=== PATIENT | female | born 1965 | race Two or more races ===

== ENCOUNTER 2022-07-30 06:46 | Day surgery (SDC) | payer OTHER ==
[~2022-07-30 06:46] MED LIST: ALPRAZOLAM ODT2 MG PO; CHILDREN'S ASPI81 MG PO; CYMBALTA30 MG PO; NORVASC5 MG PO; PROAIR RESPICL90 MCG IH; TREXALL5 MG PO
== END 2022-07-30 16:25 | disposition home or self-care (01) ==
LOC: CIR.AMB 06:46
PROVIDERS: ATTEND Orthopaedic Surgery Hand Surgery
DX: G56.21 Lesion of ulnar nerve, right upper limb (principal); M77.01 Medial epicondylitis, right elbow; Z88.2 Allergy status to sulfonamides; I10 Essential (primary) hypertension; Z85.42 Personal history of malignant neoplasm of other parts of uterus; Z92.21 Personal history of antineoplastic chemotherapy

== ENCOUNTER 2023-04-20 10:28 | Emergency (ER) | payer OTHER ==
[~2023-04-20] VITALS: Ht 157.5 cm; Wt 59.0 kg
[2023-04-20] MEDS ORDERED: GABAPENTIN300 M2 PO (10:54)
== END 2023-04-20 14:29 | disposition home or self-care (01) ==
LOC: ER 10:28
DX: J45.909 Unspecified asthma, uncomplicated (principal); Z88.2 Allergy status to sulfonamides; M19.90 Unspecified osteoarthritis, unspecified site; Z20.822 Contact with and (suspected) exposure to COVID-19

== ENCOUNTER 2023-11-25 06:42 | Day surgery (SDC) | payer OTHER ==
[2023-11-13 11:46] LABS: INR 0.99; PARTIAL THROMBOPLASTIN TIME 32.4 SECONDS (22.0-34.0); PROTHROMBIN TIME 10.4 SECONDS (9.0-11.5)
[~2023-11-25 06:42] MED LIST changes: +ACIDO FOLICO; +GABAPENTIN300 M2 PO; +VAZALORE81 MG; +[UNRECOGNIZED DRUG - OTHER]
[2023-11-25] MEDS ORDERED: BUPIVACAINE HCL/PF 0.5% 30ML ML ONE (13:11)
[2023-11-25] MEDS ORDERED: LIDOCAINE HCL/EPINEPHRINE 20 ML VIAL IJ ONE (13:11)
[2023-11-25] MEDS ORDERED: CEFAZOLIN SODIUM 1,000 MG VIAL ONE (13:11)
[2023-11-25] MEDS ORDERED: LIDOCAINE HCL 1% 200MG/20ML VIAL IJ ONE ×2 (13:11→16:30)
[2023-11-25] MEDS ORDERED: CEFAZOLIN SODIUM 1,000 MG VIAL IV ONE (16:15)
[2023-11-25] MEDS ORDERED: LIDOCAINE HCL/EPINEPHRINE 30 ML ML IJ ONE (16:30)
[2023-11-25] MEDS ORDERED: CEFAZOLIN SODIUM 1,000 MG VIAL IV SCH (17:00)
== END 2023-11-25 18:30 | disposition home or self-care (01) ==
LOC: CIR.AMB 06:42
PROVIDERS: ATTEND Specialist
DX: D21.6 Benign neoplasm of connective and other soft tissue of trunk, unspecified (principal); I10 Essential (primary) hypertension; Z20.822 Contact with and (suspected) exposure to COVID-19; Z88.2 Allergy status to sulfonamides; Z88.1 Allergy status to other antibiotic agents

== ENCOUNTER 2024-08-02 07:22 | Inpatient (IN) | payer OTHER ==
[~2024-08-02] VITALS: Ht 157.5 cm; Wt 133.8 kg
[2024-08-02] MEDS ORDERED: KETOROLAC TROMETHAMINE 60 MG VIAL IM ONE (08:45)
[2024-08-02 09:36] LABS: HEMATOCRIT 41.3 % (36.0-45.00); HEMOGLOBIN 14.1 g/dL (12.0-15.00); MEAN CELL VOLUME 92.5 fL (80.00-100.00); MEAN CORPUSCULAR HEMOGLOBIN 31.6 pg (27.00-32.0); MEAN CORPUSCULAR HGB CONC 34.2 g/dl (32.0-36.0); PLATELET COUNT 260 K/uL (150-450); RED BLOOD COUNT 4.47 M/uL (4.00-6.00); RED CELL DISTRIBUTION WIDTH 14.1 % (11.5-14.5)
[2024-08-02 09:43] LABS: PH,URINE 7.5 (5.0-8.0); URINE APPEARANCE Turbid; URINE BILIRRUBIN Negative (NEGATIVE); URINE BLOOD Small; URINE COLOR Yellow; URINE GLUCOSE Negative (NEGATIVE); URINE KETONE Negative (NEGATIVE); URINE LEUKOCYTE Trace; URINE NITRATE Negative; URINE PROTEIN Negative (NEGATIVE); URINE UROBILINOGEN 0.2 E.U./dl
[2024-08-02 09:49] LABS: URINE BACTERIA 207.8 uL (0.0-1933); URINE RBC 95.4 uL (0.0-20.8); URINE WBC 6.8 uL (0.0-23.2)
[2024-08-02 10:01] LABS: URINE CAST 0.15 uL (0.0-1.40)
[2024-08-02 10:06] LABS: CALCIUM 9.1 mg/dL (8.5-10.1); CREATININE SERUM 0.71 mg/dL (0.55-1.02); GFR 84.85; POTASSIUM 3.63 mEq/L (3.5-5.1)
[2024-08-02] MEDS ORDERED: PIPERACILLIN/TAZOBACTAM SODIUM 3.375 GM VIAL IV ONE (12:15)
[2024-08-02 17:29] LABS: INR 1.02; PROTHROMBIN TIME 11.1 SECONDS (9.0-11.5)
[2024-08-02] MEDS ORDERED: ONDANSETRON HCL 4 MG in 0.9 % SODIUM CHLORIDE 50 ML IV PRN (17:45)
[2024-08-02] MEDS ORDERED: 0.9 % SODIUM CHLORIDE 1,000 ML IV SCH (17:45)
[2024-08-02] MEDS ORDERED: KETOROLAC TROMETHAMINE 30 MG VIAL IU ONE (17:45)
[2024-08-02] MEDS ORDERED: ACETAMINOPHEN 500 MG GEL..CAP PO PRN (17:45)
[2024-08-02] MEDS ORDERED: MEPERIDINE HCL/PF 25 MG/ML VIAL IM PRN (17:45)
[2024-08-02] MEDS ORDERED: PIPERACILLIN/TAZOBACTAM SODIUM 3.375 GM in DEXTROSE 5 % IN WATER 100 ML IV SCH (18:00)
[2024-08-02 18:19] VITALS: BP 140/76; O2SAT 100
[2024-08-02 20:19] VITALS: BP 127/70; O2SAT 95
[2024-08-03 00:13] VITALS: BP 124/76; O2SAT 99
[2024-08-03] MEDS ORDERED: FAMOTIDINE/PF 20 MG in 0.9 % SODIUM CHLORIDE 8 ML IV PUSH SCH (09:00)
[2024-08-03] MEDS ORDERED: AMLODIPINE BESYLATE 5 MG TABLET PO SCH ×2 (09:00→10:25)
[2024-08-03] MEDS ORDERED: BUPIVACAINE HCL 30 ML VIAL IJ ONE (10:00)
[2024-08-03] MEDS ORDERED: 0.9 % SODIUM CHLORIDE 1,000 ML IV SCH (10:30)
[2024-08-03] MEDS ORDERED: MEPERIDINE HCL/PF 50 MG/ML VIAL IM PRN (10:30)
[2024-08-03] MEDS ORDERED: ONDANSETRON HCL 2 MG/ML VIAL IV PRN (10:30)
[2024-08-03] MEDS ORDERED: PROMETHAZINE HCL 50 MG/ML AMPUL IM PRN (10:30)
[2024-08-03 11:40] VITALS: BP 147/67; O2SAT 100
[2024-08-03 13:25] LABS: PH,URINE 7.5 (5.0-8.0); URINE APPEARANCE Clear; URINE BILIRRUBIN Negative (NEGATIVE); URINE COLOR Yellow; URINE GLUCOSE Negative (NEGATIVE); URINE KETONE 15 (NEGATIVE); URINE LEUKOCYTE Small; URINE NITRATE Negative; URINE PROTEIN Negative (NEGATIVE); URINE UROBILINOGEN 0.2 E.U./dl
[2024-08-03 13:26] LABS: URINE BACTERIA 20.1 uL (0.0-1933); URINE EPITHELIAL CELLS 14.3 uL (0.0-38.8); URINE RBC 16.7 uL (0.0-20.8); URINE WBC 23.1 uL (0.0-23.2)
[2024-08-03 13:29] LABS: URINE BLOOD TRACES
[2024-08-03 16:18] VITALS: BP 121/60; O2SAT 100
[2024-08-03] MEDS ORDERED: ZOLPIDEM TARTRATE 5 MG TABLET PO SCH (21:00)
[2024-08-04 00:30] VITALS: BP 112/58; O2SAT 100
[2024-08-04 08:39] VITALS: BP 139/68; O2SAT 100
[2024-08-04] MEDS ORDERED: LOSARTAN POTASSIUM 25 MG TABLET PO SCH (09:00)
[2024-08-04] MEDS ORDERED: HYDROCHLOROTHIAZIDE 12.5 MG CAPSULE PO SCH (09:00)
[2024-08-04] MEDS ORDERED: Duloxetine HCl 60 MG CAPSULE.DR PO SCH (17:00)
[2024-08-04 17:28] VITALS: BP 104/57; O2SAT 100
[2024-08-05 00:10] VITALS: BP 118/57; O2SAT 100
[2024-08-05 07:16] LABS: HEMATOCRIT 38.7 % (36.0-45.00); HEMOGLOBIN 13.2 g/dL (12.0-15.00); MEAN CELL VOLUME 93.2 fL (80.00-100.00); MEAN CORPUSCULAR HEMOGLOBIN 31.9 pg (27.00-32.0); MEAN CORPUSCULAR HGB CONC 34.2 g/dl (32.0-36.0); PLATELET COUNT 224 K/uL (150-450); RED BLOOD COUNT 4.16 M/uL (4.00-6.00); RED CELL DISTRIBUTION WIDTH 13.4 % (11.5-14.5)
[2024-08-05 07:58] LABS: ALBUMIN 3.3 gm/dL (3.4-5.0); BILIRUBIN TOTAL 0.35 mg/dL (0.3-1.2); CALCIUM 8.7 mg/dL (8.5-10.1); CREATININE SERUM 0.57 mg/dL (0.55-1.02); GFR 109.32; GLOBULINA 2.8 G/DL (2.4-3.5); MAGNESIUM 2.1 mg/dL (1.8-2.4); PHOSPHOROUS 3.9 mg/dL (2.5-4.9); POTASSIUM 3.11 mEq/L (3.5-5.1); TOTAL PROTEIN 6.1 gm/dL (6.4-8.2)
[2024-08-05 08:03] LABS: C-REACTIVE PROTEIN 2.54 MG/DL (0.00-0.29)
[2024-08-05 08:38] VITALS: BP 126/76; O2SAT 98
== END 2024-08-05 12:22 | disposition home or self-care (01) | DRG 399 ==
LOC: ER 07:24 → SURG 18:12
PROVIDERS: Emergency Medicine; General Practice; Internal Medicine Infectious Disease; Student in an Organized Health Care Education/Training Program; ADMIT Internal Medicine; ATTEND Internal Medicine
PROC: BW21ZZZ Computerized Tomography (CT Scan) of Abdomen and Pelvis (ICD-10-PCS; 2024-08-02)
PROC: 0DTJ4ZZ Resection of Appendix, Percutaneous Endoscopic Approach (ICD-10-PCS; principal; 2024-08-03 09:50)
DX: K35.890 Other acute appendicitis without perforation or gangrene (principal)

== ENCOUNTER 2025-02-21 13:05 | Emergency (ER) | payer OTHER ==
[~2025-02-21] VITALS: Ht 157.5 cm; Wt 62.1 kg
[2025-02-21] MEDS ORDERED: BUPROPION HCL100 M1 PO (14:26)
[2025-02-21] MEDS ORDERED: KETOROLAC TROMETHAMINE 30 MG VIAL IV ONE (14:45)
[2025-02-21] MEDS ORDERED: KETOROLAC TROMETHAMINE 30 MG VIAL ONE (14:55)
[2025-02-21 15:13] LABS: BASO % 0.5 % (0.1-1.2); EOS # 0.04 (0.04-0.54); EOS % 0.4 % (0.7-7.0); HEMATOCRIT 42.8 % (34.1-44.9); HEMOGLOBIN 14.8 g/dL (11.2-15.7); LYMPH # 1.78 (1.18-3.74); LYMPH % 16.1 % (19.3-53.1); MEAN CORPUSCULAR HEMOGLOBIN 31.5 pg (25.6-32.2); MONO # 0.38 (0.24-0.82); MONO % 3.4 % (4.7-12.5); NEUT # 8.77 (1.56-6.13); NEUT % 79.2 % (34.0-71.1); PLATELET COUNT 267 K/uL (163-369); RED CELL DISTRIBUTION WIDTH 13.2 % (11.6-14.4)
[2025-02-21 15:38] LABS: CALCIUM 9.5 mg/dL (8.5-10.1); CREATININE SERUM 0.72 mg/dL (0.55-1.02); GFR 83.2; POTASSIUM 3.44 mEq/L (3.5-5.1)
[2025-02-21 15:57] LABS: URINE APPEARANCE Turbid; URINE BILIRRUBIN Negative (NEGATIVE); URINE BLOOD NHT; URINE COLOR Yellow; URINE GLUCOSE Negative (NEGATIVE); URINE KETONE Negative (NEGATIVE); URINE LEUKOCYTE Trace; URINE NITRATE Negative; URINE PROTEIN Trace (NEGATIVE); URINE UROBILINOGEN 0.2 E.U./dl
[2025-02-21 16:00] LABS: URINE BACTERIA 67.2 uL (0.0-1933); URINE RBC 69.9 uL (0.0-20.8); URINE WBC 10.2 uL (0.0-23.2)
[2025-02-21 16:18] LABS: URINE CAST 0.14 uL (0.0-1.40)
[2025-02-21] MEDS ORDERED: TAMSULOSIN HCL 0.4 MG CAP PO ONE (16:30)
[2025-02-21] MEDS ORDERED: ONDANSETRON HCL 2 MG/ML VIAL IV STA (16:31)
[2025-02-21] MEDS ORDERED: KETOROLAC TROMETHAMINE 60 MG VIAL IM ONE ×2 (16:36→16:45)
[2025-02-21] MEDS ORDERED: ONDANSETRON HCL 2 MG/ML VIAL ONE (16:37)
== END 2025-02-21 16:58 | disposition home or self-care (01) ==
LOC: ER 13:05
PROVIDERS: Emergency Medicine
DX: N23 Unspecified renal colic (principal); I10 Essential (primary) hypertension; Z88.2 Allergy status to sulfonamides